=== PATIENT | female | born 1955 | race American Indian/Alaskan Native ===

== ENCOUNTER 2017-07-13 10:16 | Emergency (ER) | payer OTHER ==
[2017-07-13 10:26] VITALS: RESP 16
[2017-07-13] MEDS ORDERED: Sodium Chloride 0.9% 1,000 ML IV ONE (10:55)
--- NOTE | 2017-07-13 11:00 | C.PDOC ---
History Of Present Illness 62 y/o female with history of Lupus and COPD presents to ED with c/o right sided abdominal pain intermittent for "few weeks" worse since yesterday. Patient states she saw Dr. Chi her PMD yesterday who advised her to come to ED for further evaluation. Patient admits to decreased appetite and vomiting today. Normal BM today. Denies fever, diarrhea, dysuria, hematuria, vaginal discharge, headache or any other complaints at this time. Time Seen by Provider: 07/13/17 10:39 Chief Complaint (Nursing): Abdominal Pain History Per: Patient History/Exam Limitations: no limitations Onset/Duration Of Symptoms: Days Current Symptoms Are (Timing): Still Present Location Of Pain/Discomfort: RLQ Radiation Of Pain To:: None Quality Of Discomfort: "Pain" Associated Symptoms: Vomiting Past Medical History Reviewed: Historical Data, Nursing Documentation, Vital Signs Vital Signs: Last Vital Signs Temp 98.1 F 07/13/17 14:09 Pulse 68 07/13/17 14:09 Resp 16 07/13/17 14:09 BP 156/74 H 07/13/17 14:09 Pulse Ox 99 07/13/17 18:47 - Medical History PMH: COPD, Osteoporosis Surgical History: No Surg Hx - [facility] Procedures ENDOSC POLYPECTOMY OF LG INTEST (06/13/04) ESOPHAGOGASTRODUODENOSCOPY [EGD] W/CLOSED BIOPSY (04/14/04) OTH LYSIS-PERITONEAL ADHES (09/29/02) RELAXATION OF SCAR (09/29/02) SUBTOT ABD HYSTERECTOMY (09/29/02) UTERINE SUSPENSION NEC (09/29/02) Family History: States: No Known Family Hx - Social History Hx Alcohol Use: No Hx Substance Use: No Review Of Systems Constitutional: Negative for: Fever, Chills Gastrointestinal: Positive for: Vomiting, Abdominal Pain. Negative for: Diarrhea Genitourinary: Negative for: Dysuria, Hematuria Physical Exam - Physical Exam Appears: Non-toxic, No Acute Distress Skin: Warm, Dry, No Rash Head: Atraumatic, Normacephalic Eye(s): bilateral: Normal Inspection, EOMI Oral Mucosa: Moist Neck: Normal ROM, Supple Chest: Symmetrical Cardiovascular: Rhythm Regular Respiratory: Normal Breath Sounds, No Accessory Muscle Use, No Rales, No Rhonchi , No Wheezing Gastrointestinal/Abdominal: Soft, Tenderness (RLQ), No Guarding, No Rebound Back: No CVA Tenderness Extremity: Normal ROM, Capillary Refill (<2 seconds) Neurological/Psych: Oriented x3, Normal Speech, Normal Cognition ED Course And Treatment - Laboratory Results Result Diagrams: 07/13/17 11:08 07/13/17 11:08 O2 Sat by Pulse Oximetry: 99 (RA) Pulse Ox Interpretation: Normal - CT Scan/US CT abd/pelvis Other Rad Studies (CT/US): Read By Radiologist, Radiology Report Reviewed CT/US Interpretation: PROCEDURE: CT scan abdomen pelvis dated 07/13/2017. HISTORY: Pain. COMPARISON: No prior study available for comparison. TECHNIQUE: Contiguous helical/transaxial images of pelvis performed following intravenous injection of approximately 100 cc Visipaque 320 contrast material. Additional 2 dimensional sagittal and coronal reformats generated. This CT exam was performed using one or more of the following dose reduction techniques : Automated exposure control, adjustment of the mA and/or kV according to patient size, and/or use of iterative reconstruction technique. Radiation dose : Total exam DLP = 700.14 mGy-cm. FINDINGS: LOWER THORAX: Made there appears to be mild fibrosis and atelectasis both posterior lower lung kennedy. No evidence of effusion or basilar pneumothorax. There is a small hiatal hernia with wall thickening of the distal esophagus that could be due to protrusion of gastric mucosa. Possibility of esophagitis not excluded. Heart size is upper limits of normal/borderline enlarged. LIVER: Liver exhibits normal size measuring approximately 13 point 4 cm in CC dimension. Mild diffuse fatty hepatic infiltration. Mild central intrahepatic biliary ductal dilatation. Portal and splenic veins are opacified. No obvious hepatic masses or collections. There is a small amount of fat adjacent to the fissure. . GALLBLADDER AND BILE DUCTS: Cholecystectomy. PANCREAS: Pancreas appears slightly atrophic and fatty replaced. No obvious pancreatic mass or collection. Pancreatic duct is visible and appears slightly prominent at the level of the pancreatic head with mild dilatation of the common bile duct. No definitive evidence of intraluminal calculi however followup MRCP could be performed if further evaluation is required. SPLEEN: The spleen exhibits normal size and attenuation pattern without mass collection or calcification. ADRENALS: There are no adrenal lesions seen. KIDNEYS AND URETERS: Kidneys demonstrate symmetric nephrograms. No evidence of nephrolithiasis or hydronephrosis. BLADDER: Urinary bladder is physiologically distended. No evidence of intraluminal urinary bladder calculi. REPRODUCTIVE: Uterus is compressed and displaced posteriorly by the distended urinary bladder. APPENDIX: Normal- appearing appendix of best seen on coronal sequence image number [id number]. No evidence of acute appendicitis. BOWEL: Evaluation of the bowel is limited due lack of oral contrast material. Stomach is incompletely distended which in part accounts for thick-walled appearance however the possibility of a gastritis not excluded. . There are distended fluid filled the loops of small bowel some of which also exhibit fecalized content suggesting stasis. There is a large amount of stool seen throughout the colon, particularly at the cecum, ascending and transverse colon, consistent with fecal retention constipation. There is mild wall thickening of portion of the sigmoid colon which is nonspecific though could represent some combination of underdistention, peristalsis and unopacified stool however the possibility of inflammatory process not excluded. PERITONEUM: Unremarkable. No fluid collection. No free air. Small to medium sized fat containing umbilical hernia. LYMPH NODES: Unremarkable. No enlarged lymph nodes. VASCULATURE: Unremarkable. No aortic aneurysm. 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 Vertebral bodies otherwise appear intact with no acute compression fractures no retropulsed fragments. Multilevel degenerative spondylosis of the lower thoracic and lumbar spine with moderate dextroscoliosis centered at the lower thoracic region. OTHER FINDINGS: None. IMPRESSION: Scarring and fibrosis some as well as atelectasis both posterior lower lung zones. Findings consistent with fairly significant constipation with several loops of small bowel that a contained fecalized content. .There is mild wall thickening of portion of the sigmoid colon which is nonspecific though could represent some combination of underdistention, peristalsis and unopacified stool however the possibility of an inflammatory process not excluded. No evidence of acute appendicitis. Mild fatty hepatic infiltration there is some mild intrahepatic biliary ductal dilatation with dilatation of the common bile duct likely due to post cholecystectomy status however consider followup MRCP. Minimal prominence of the proximal pancreatic duct. Distended urinary bladder. Rule out urinary retention. Unilateral pars defect L5 level. Small on to medium-sized fat containing umbilical hernia. Progress Note: CT ABD/PELVIS, Blood work, UA ordered. Toradol, Zofran, Protonix and IV fluids administered. On re-evalution, patient feeling better. Patient given PO challenge and tolerated. Discussed results of CT scan and its limitations. Offered US for further evaluatiuon, pt refused noting she will f/u with her PMD. Copies of workup given. Case discussed with Dr Chi, agreed upon plan and discharge. Disposition - Disposition Referrals: Chris Chi MD [Staff Provider] - Norma Gómez [Staff Provider] - Disposition: HOME/ ROUTINE Disposition Time: 14:18 Condition: STABLE Additional Instructions: Increase fluid and fiber intake. Follow up with PMD in 1 -2 days . Return to ER if symptoms persist or worsen. 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 - Scribe Statement The provider has reviewed the documentation as recorded by the Marcibnick Martinez All medical record entries made by the Marcibnick were at my direction and personally dictated by me. I have reviewed the chart and agree that the record accurately reflects my personal performance of the history, physical exam, medical decision making, and the department course for this patient. I have also personally directed, reviewed, and agree with the discharge instructions and disposition.
[2017-07-13] MEDS ORDERED: Sodium Chloride 0.9% 1,000 ML ONE (11:07)
[2017-07-13 11:15] LABS: BASO % 0.4 % (0.0-2.0); EOS % 0.5 % (0.0-4.0); HEMOGLOBIN 14.4 g/dL (11.0-16.0); LYMPH # 2.1 K/uL (1.0-4.3); LYMPH % 29.3 % (20.0-40.0); MEAN CELL VOLUME 90.6 fL (81.0-99.0); MEAN CORPUSCULAR HEMOGLOBIN 30.4 pg (27.0-31.0); MEAN CORPUSCULAR HGB CONC 33.5 g/dL (33.0-37.0); MONO # 0.4 K/uL (0.0-0.8); MONO % 5.8 % (0.0-10.0); NEUT # 4.6 K/uL (1.8-7.0); RBC 4.75 Mil/uL (3.80-5.20); RED CELL DISTRIBUTION WIDTH 15.2 % (11.5-14.5); WHITE BLOOD COUNT 7.1 K/uL (4.8-10.8)
[2017-07-13 11:28] LABS: ALB/GLOB RATIO 1.1 (1.0-2.1); ALBUMIN 4.2 g/dL (3.5-5.0); ALT/SGPT 9 U/L (9-52); AST/SGOT 22 U/L (14-36); BLOOD UREA NITROGEN 8 mg/dL (7-17); CALCIUM 9.4 mg/dl (8.6-10.4); GFR AFRICAN-AMERICAN > 60; GFR NON-AFRICAN AMERICAN > 60; LIPASE 139 U/L (23-300)
[2017-07-13] MEDS ORDERED: Iodixanol 320 MG/ML 100 ML BOTTLE IV ONE (12:03)
--- NOTE | 2017-07-13 13:30 | CT ---
PROCEDURE: CT scan abdomen pelvis dated 07/13/2017 HISTORY: Pain COMPARISON: No prior study available for comparison TECHNIQUE: Contiguous helical/transaxial images of pelvis performed following intravenous injection of approximately 100 cc Visipaque 320 contrast material. Additional 2 dimensional sagittal and coronal reformats generated. This CT exam was performed using one or more of the following dose reduction techniques: Automated exposure control, adjustment of the mA and/or kV according to patient size, and/or use of iterative reconstruction technique. Radiation dose: Total exam DLP = 700.14 mGy-cm. FINDINGS: LOWER THORAX: Made there appears to be mild fibrosis and atelectasis both posterior lower lung kennedy. No evidence of effusion or basilar pneumothorax. There is a small hiatal hernia with wall thickening of the distal esophagus that could be due to protrusion of gastric mucosa. Possibility of esophagitis not excluded. Heart size is upper limits of normal/borderline enlarged. LIVER: Liver exhibits normal size measuring approximately 13 point 4 cm in CC dimension. Mild diffuse fatty hepatic infiltration. Mild central intrahepatic biliary ductal dilatation. Portal and splenic veins are opacified. No obvious hepatic masses or collections. There is a small amount of fat adjacent to the fissure. . GALLBLADDER AND BILE DUCTS: Cholecystectomy PANCREAS: Pancreas appears slightly atrophic and fatty replaced. No obvious pancreatic mass or collection. Pancreatic duct is visible and appears slightly prominent at the level of the pancreatic head with mild dilatation of the common bile duct. No definitive evidence of intraluminal calculi however followup MRCP could be performed if further evaluation is required. SPLEEN: The spleen exhibits normal size and attenuation pattern without mass collection or calcification. ADRENALS: There are no adrenal lesions seen. KIDNEYS AND URETERS: Kidneys demonstrate symmetric nephrograms. No evidence of nephrolithiasis or hydronephrosis. BLADDER: Urinary bladder is physiologically distended. No evidence of intraluminal urinary bladder calculi. REPRODUCTIVE: Uterus is compressed and displaced posteriorly by the distended urinary bladder. APPENDIX: Normal-appearing appendix of best seen on coronal sequence image number [id number]. No evidence of acute appendicitis. BOWEL: Evaluation of the bowel is limited due lack of oral contrast material. Stomach is incompletely distended which in part accounts for thick-walled appearance however the possibility of a gastritis not excluded. . There are distended fluid filled the loops of small bowel some of which also exhibit fecalized content suggesting stasis. There is a large amount of stool seen throughout the colon, particularly at the cecum, ascending and transverse colon, consistent with fecal retention constipation. There is mild wall thickening of portion of the sigmoid colon which is nonspecific though could represent some combination of underdistention, peristalsis and unopacified stool however the possibility of inflammatory process not excluded. PERITONEUM: Unremarkable. No fluid collection. No free air. Small to medium sized fat containing umbilical hernia. LYMPH NODES: Unremarkable. No enlarged lymph nodes. VASCULATURE: Unremarkable. No aortic aneurysm. 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 Vertebral bodies otherwise appear intact with no acute compression fractures no retropulsed fragments. Multilevel degenerative spondylosis of the lower thoracic and lumbar spine with moderate dextroscoliosis centered at the lower thoracic region. OTHER FINDINGS: None. IMPRESSION: Scarring and fibrosis some as well as atelectasis both posterior lower lung zones. Findings consistent with fairly significant constipation with several loops of small bowel that a contained fecalized content. .There is mild wall thickening of portion of the sigmoid colon which is nonspecific though could represent some combination of underdistention, peristalsis and unopacified stool however the possibility of an inflammatory process not excluded. No evidence of acute appendicitis. Mild fatty hepatic infiltration there is some mild intrahepatic biliary ductal dilatation with dilatation of the common bile duct likely due to post cholecystectomy status however consider followup MRCP. Minimal prominence of the proximal pancreatic duct Distended urinary bladder. Rule out urinary retention. Unilateral pars defect L5 level. Small on to medium-sized fat containing umbilical hernia.
[2017-07-13 14:10] VITALS: BP 156/74; PULSE 68; TEMP 98.1
[2017-07-13 14:15] LABS: SQUAMOUS EPITHIAL 1 /hpf (0-5); URINE BILIRUBIN NEGATIVE (NEGATIVE); URINE BLOOD NEGATIVE (NEGATIVE); URINE CLARITY Clear (Clear); URINE COLOR Straw (YELLOW); URINE GLUCOSE (UA) 3+ mg/dL (Normal); URINE LEUKOCYTE ESTERASE NEG Leu/uL (Negative); URINE PROTEIN NEGATIVE (NEGATIVE); URINE UROBILINOGEN NORMAL mg/dL (0.2-1.0)
[2017-07-13 14:22] VITALS: O2SAT 99
== END 2017-07-13 15:07 | disposition home or self-care (01) ==
LOC: C.ER 10:16
DX: K59.00 Constipation, unspecified (principal); R10.31 Right lower quadrant pain
CPT/HCPCS: 74177; 80053; 81001; 83690; 85025; 96361; 96374; 96375; 99284; C9113; J1885; J2405; J7040; Q9967